=== PATIENT | male | born 1960 | race Caucasian/White ===

== ENCOUNTER 2017-11-12 18:11 | Inpatient (IN) ==
--- OUTSIDE RECORDS SUMMARY | 2017-11-12 18:22 | External Medical Summary ---
:1960 Author Organization [employer] Care Team Providers Name Role Phone Jaymie Geronimo Provider Role Unavailable Allergies No Known Allergies Problems Problem Type Condition Code Onset Dates Condition Status Problem Encounter for examination required Z02.89 Active by Department of Transportation (DOT) Medications No Known Medications Results No Known Results Summary Purpose [employer] Submission
[2017-11-12 18:36] VITALS: BMI 34.0
[2017-11-12] MEDS ORDERED: ONDANSETRON 4 MG/2 ML INJECTION IVP PRN (20:22)
[2017-11-12] MEDS ORDERED: SALINE FLUSH 10ml SYRINGE IV PRN (20:22)
[2017-11-12] MEDS ORDERED: MORPHINE SULFATE 2mg INJECTION IVP PRN (20:22)
[2017-11-12] MEDS: NS 1,000 ML IV SCH (21:28)
[2017-11-12] MEDS: PANTOPRAZOLE 40 MG INJECTION IVP SCH (21:54)
--- NOTE | 2017-11-12 21:59 | History & Physical Report ---
History of Present Illness Date: 11/13/17 Chief complaint: Abdominal pain, chills HPI: Lang is a 57 y/o male w/ h/o HLD, HTN and GERD who presented to his PCP's office today w/ cc of 2 days of abdominal pain, subjective fevers (highest recorded temp of 99.1F), chills and malaise and labs taken and influenza was negative, and labs for most part unremarkable except for lipase which was 893. Patient's Hgb was 14.2 and his WBC was 9.7, his ALT was 61 however other liver enzymes WNL. He states his abdominal pain is primarily periumbilical and in the upper quadrants and radiates to the back on the left side. Patient denies n/v/d, denies chest pain and SOA/dyspnea, and denies ROLON and change in bowel/bladder function. he reports and occasional cough d/t occasional post-nasal drip but this is "nothing new". Patient directly admitted to the Hospitalist service for further evaluation and management. When I visited w/ the patient via [facility] telemedicine, he was resting comfortably and in NAD and was very pleasant. he reports some mild abdominal pain currently. He denies significant h/o EtOH intake, states he has an occasional alcoholic beverage but not very often. he denies recent change in medication other than reduction of his dose of HCTZ to 12.5mg once daily. Denies tobacco use. Denies recent h/o trauma to abdominal area. Review of Systems All systems PM: 10-point ROS was reviewed, no additional remarkable complaints except Past Medical History Medical History Updates: HTN, HLD, GERD; recently had EGD and colonoscopy and had "pre-cancerous" polyp removed. Has h/o appendectomy last year. Surgical History: Vasectomy. Eye surgery Family History Updates: Sister and mother w/ DM2; father had Parkinson's Family History: As Above - Social History Smoking status: Never smoker Alcohol intake frequency: holidays/special occasions only Household members: spouse Medications Home Medications Medication Instructions Recorded Confirmed Type Lansoprazole [Prevacid] 30 mg PO BID #0 05/10/13 11/12/17 History Ibuprofen 600 mg PO Q6H PRN 05/25/17 11/12/17 History HydroCHLOROthiazide [Hydrodiuril] 0.5 tab PO WB 10/20/17 11/12/17 History Lisinopril [Prinivil] 2 tab PO DAILY 10/20/17 11/12/17 History Pravastatin Sodium [Pravachol] 20 mg PO DAILY 11/12/17 11/12/17 History Allergies Allergy/AdvReac Type Severity Reaction Status Date / Time No Known Allergies Allergy Verified 11/12/17 18:43 Exam Vital Signs: Temperature 96.7 F L 11/12/17 18:40 Pulse Rate 53 L 11/12/17 20:56 Respiratory Rate 12 11/12/17 20:56 Blood Pressure 135/84 11/12/17 18:40 Pulse Oximetry 95 11/12/17 20:56 Telemetry Rhythm: Sinus Rhythm Height/Weight/BMI: Height 1.83 m Weight 113.8 kg Body Mass Index 34.0 - Constitutional Present: no acute distress, well nourished, well developed, cooperative - Routine HEENT Exam Head: Present: normocephalic, atraumatic Eye: Present: EOMI, PERRL. Absent: conjunctival icterus ENT: Present: mucous membranes moist - Routine Neck Exam Present: supple, full ROM. Absent: JVD - Routine Respiratory Exam Present: CTA bilaterally. Absent: accessory muscle use, dyspnea, rales, respiratory distress, rhonchi, wheezes - Routine Cardiovascular Exam Present: RRR, S1, S2 - Routine Abdominal Exam Present: soft, normoactive bowel sounds, tenderness (mild in RUQ, LUQ, periumbilical area), non distended - Routine Extremities Exam Absent: cyanosis, clubbing, edema - Routine Skin Exam Present: intact - Routine Neurological Exam Present: alert, oriented X3, CN II-XII intact. Absent: sensory deficit, motor deficit - Routine Psychiatric Exam Present: normal affect, normal thought process, good insight, good judgment Results - Labs CBC & Chem 7: 11/13/17 00:30 11/13/17 00:30 Assessment and Plan Assessment and Plan: Assessment 1) Acute Pancreatitis - suspected based on abdominal pain and elevated lipase - possible etiologies include gallstones/gall bladder, medications, infectious ( possibly viral) vs. other etiology 2) Acute abdominal pain r/t # 1 3) Mild transaminitis - ALT mildly elevated 4) HTN 5) GERD 6) HLD Plan: Admit to Hospitalist US Gallbladder in AM NPO except for sips/ice chips sparingly IV protonix 40mg q 24 hours IVFs that of NS tra 125 cc/hour Telemetry IV morphine prn as directed Labs in AM Lactate pending UA pending If becomes febrile, consider starting IV Abx empirically and obtaining blood cultures Recheck lipase in AM I have discussed the plan of care with the patient and patient's spouse and they verbalized understanding and agreement. DVT Prophylaxis: SCD's GI Prophylaxis: Protonix Resuscitation Status: Full Code - Physician Narrative Physician: Barbara Figueroa MD Narrative: Date: 11/13/17 Time: 1110 Please see my note dictated 11/13 for updates and additions. Hospital Course Summary Disclaimer: The visit summary below is not to be considered part of the above Progress Note.
[2017-11-13] MEDS: ACETAMINOPHEN 325 MG TABLET PO PRN ×2 (03:32→14:09)
[2017-11-13] MEDS: NS 1,000 ML IV SCH ×2 (05:26→14:09)
[2017-11-13 07:57] VITALS: TEMP 98.3
[2017-11-13] MEDS: PANTOPRAZOLE 40 MG INJECTION IVP SCH (08:12)
--- NOTE | 2017-11-13 11:41 | History & Physical Report ---
- History and Physical History and Physical: Dr. Carrillo's note reviewed. Mr. Chadwick interviewed and examined. CC: Abdominal pain/abnormal HPI: Mr. Chadwick is a 57-year-old male who developed generalized abdominal pain about 9:30 AM on 11/11 after having a protein shake for breakfast. Pain radiated to his back and was not accompanied by nausea or vomiting. He did not identify more intense pain in the upper abdomen or no worsening of pain following noon meal. Late in the day he described low-grade fever with maximum temperature of 99.1, chills, and malaise. Pain persisted the following morning and he was subsequently evaluated at his physician's office or testing for influenza was negative and lab work was sent with subsequent identification of lipase 893 and ALT of 61 (ALT chronically elevated per 's history). Pain has gradually subsided over time and is now graded 2/10 after maximal pain of 8- 9/10 shortly after onset. Patient denies any acute respiratory symptoms and has had no chest pain. When labs became known yesterday evening he was referred to the hospital for further evaluation. PH/SH/FH: agree with that recorded 11/[address] Carrillo with additions of diverticulosis by colonoscopy, question will segment of Rodriguez's esophagus. He has no history of illicit drug use. Patient's is his alternate decision maker and he is a full code. ROS: [address] Carrillo. EXAM: General-NAD, alert, fluent speech; 98.3, 50, 117/80, 92% room air HEENT-PERRL, EOMI without nystagmus, conjunctiva clear, sclera anicteric, conjugate gaze, facial structures symmetric, oropharynx clear, neck supple and without adenopathy Lungs-respirations nonlabored, good airflow, breath sounds clear anteriorly/ posteriorly Cardiac-regular rhythm, S1-S2 Abd-soft, mild tenderness without guarding in the epigastrium and just below the left costal margin; minimal tenderness on palpation along the right costal margin, Kidd sign negative. Lower abdomen nontender on palpation. Active bowel sounds present Ext-without edema Skin-nonicteric and without generalized rash or evidence of wounds Neuro-cranial nerves 3-12 intact, motor tone/power normal, sensation intact to light touch Psych-calm, cooperative DATA: Lipase 893-619; liver enzymes all normal except minor elevation in ALT at 51. Remainder of chemistries normal. White count 7.9, hemoglobin 13.7 Gallbladder sonogram reviewed by myself-gallbladder alicia normal, no evidence of gallstones, ducts normal. I don't appreciate any pancreatic edema-formal report pending A/P: Pancreatitis, acute Acute abdominal pain Abnormal liver enzymes Hypertension Hyperlipidemia GERD Abdominal pain improving progressively and consistent with acute pancreatitis. Await formal report of gallbladder sonogram although not suspicious by my review. Continue symptomatic management at present. If gallbladder negative patient is on will start clear liquids and reassess. It is on hydrochlorothiazide which may need to be discontinued in light of pancreatitis.
[2017-11-13 15:09] VITALS: BP 112/66; RESP 18; O2SAT 96
[2017-11-13 17:13] VITALS: PULSE 53
--- NOTE | 2017-11-13 17:46 | Discharge Summary ---
Discharge Summary- Blank Discharge Summary: Date of admission-11/12/17 Date of discharge-11/13/17 Diagnoses- Pancreatitis, acute Acute abdominal pain Abnormal liver enzymes Hypertension Hyperlipidemia GERD Radiology- Gallbladder sonogram without evidence of cholelithiasis, gallbladder wall thickening, ductal dilatation, or acute inflammation in the pancreas. Cyst present right kidney. Hospital course- Mr. Chadwick was hospitalized after outpatient evaluation for abdominal pain starting one day earlier labs demonstrated lipase of 893 on 11/12. He was treated for pancreatitis with IV fluids and kept nothing by mouth in the event gallbladder sonogram demonstrated cholelithiasis. IV antiemetics and pain medications were available however were not necessary and pain improved progressively during the time he was hospitalized. Gallbladder sonogram was unremarkable. The patient denies history of alcohol use. He has a history of hyperlipidemia (lipids were not reassessed during hospital course/lipemia not described by lab) and is on multiple medications which have been associated with pancreatitis. Given clinical improvement patient was felt stable for discharge late in the day 11/13 with instructions to hold Pravachol and HCTZ pending follow-up with Dr. Teran within the next week. He was advised to notify his provider should pain recur. Lipids will need to be reassessed in the near future.
[2017-11-13] MEDS ORDERED: PRAVASTATIN 20 MG TABLET PO SCH (21:00)
[2017-11-13] MEDS ORDERED: PANTOPRAZOLE 40 MG TABLET PO SCH (21:00)
[2017-11-14] MEDS ORDERED: LISINOPRIL 10 MG TABLET PO SCH (09:00)
--- NOTE | 2017-11-14 16:38 | Ultrasound Report ---
Indication: Acute Pancreatitis, Abdominal pain PROCEDURE: US gall bladder: Encounter: Initial Comparison: None Technique: Grayscale and color Doppler sonographic imaging of the right upper quadrant of the abdomen was performed. Findings: Hepatic parenchyma is echogenic without evidence for focal mass. The gallbladder is normal. There is no wall thickening, pericholecystic fluid, sonographic Kidd's sign or cholelithiasis. Both the intra and extrahepatic biliary system are of normal caliber with the common duct measuring 4 mm in dimension. Visualized portions of the head and body of the pancreas are unremarkable. The right kidney is present without collecting system dilatation. The right kidney measures 13.4 cm in length. Simple appearing 5.4 cm right renal cyst. Impression: Normal gallbladder. Hepatic steatosis. There is a preliminary report by [facility]. .
== END 2017-11-13 16:56 | disposition home or self-care (01) | DRG 440 ==
LOC: MED 18:17
PROVIDERS: ADMIT Internal Medicine; ATTEND Internal Medicine